=== PATIENT | male | born 1950 | race Hispanic/Latino ===

== ENCOUNTER 2019-06-15 21:37 | Inpatient (IN) | payer MEDICARE ==
[2019-06-15] MEDS ORDERED: Morphine 4 MG/ML VIAL ONE (22:13)
[2019-06-15] MEDS ORDERED: Nitroglycerin 0.4 MG TAB (25 Tab Bottle) SL PRN (22:35)
[2019-06-15] MEDS ORDERED: Morphine 2 MG/ML SYRINGE SLOW IVP PRN (22:35)
[2019-06-15] MEDS ORDERED: Calcium Carbonate 500 MG ChewTAB PO PRN (22:39)
[2019-06-15] MEDS ORDERED: Acetaminophen 325 MG TAB PO PRN (22:39)
[2019-06-15] MEDS ORDERED: Ondansetron ODT 4 MG TAB PO PRN (22:39)
[2019-06-15] MEDS ORDERED: Ondansetron PF 4 MG/2 ML Vial IVP PRN (22:39)
[2019-06-15] MEDS ORDERED: Insulin Regular 300 UNITS/3 ML VIAL SC PRN ×2 (22:42)
[2019-06-15] MEDS ORDERED: Heparin 10,000 UNITS/ 10 ML VIAL SLOW IVP SCH (22:45)
[2019-06-15] MEDS ORDERED: Heparin 25,000 units/D5W 500 ML IVPB SCH (22:45)
[2019-06-15] MEDS ORDERED: Nitroglycerin 50 MG/250 ML BOT 250 ML IVPB SCH (22:45)
[2019-06-15 23:00] LABS: Hemoglobin 15.4 g/dL (14.0-18.0); Platelet Count 161 thou/uL (130-400)
[2019-06-15 23:18] LABS: Magnesium 1.8 mg/dL (1.6-2.6); Phosphorus 2.4 mg/dL (2.3-4.7)
[2019-06-15 23:29] LABS: Troponin I 2.149 ng/mL (< 0.028)
[2019-06-16 00:44] VITALS: BMI 31.2
[2019-06-16] MEDS: Sodium Chloride 0.9% 1,000 ML IV SCH ×2 (00:48→13:26)
--- NOTE | 2019-06-16 01:40 | HP ---
The patient was seen and examined on June 15, 2019. CHIEF COMPLAINT: Chest discomfort. HISTORY OF PRESENT ILLNESS: The patient is a 68-year-old male with impaired glucose tolerance and chronic renal insufficiency, presented to the emergency room with above complaints. Over the last 1 week, the patient has on and off chest discomfort that is substernal. It is worse on exertion. The pain got worse this evening around 7 p.m. while he was mowing his yard. He had some palpitations and diaphoresis along with shortness of breath as well. He was anxious. He denies any radiation. In the emergency room at [facility], he was started on heparin drip along with nitroglycerin drip. His chest pain improved. He denies recent cardiac workup. PAST MEDICAL HISTORY: 1. Chronic renal insufficiency. 2. Impaired glucose tolerance. PAST SURGICAL HISTORY: Lithotripsy for renal calculi. ALLERGIES: NO KNOWN DRUG ALLERGIES. CURRENT HOME MEDICATIONS: Pepcid twice a day which was started [address] Houston Eldridge. SOCIAL HISTORY: The patient currently lives at home with his family. He is full code. No smoking, alcohol, or drug use. He makes his own decision with the help of his family. The patient is Macedonian-speaking only. FAMILY HISTORY: Negative for premature coronary artery disease. Father of pneumonia. REVIEW OF SYSTEMS: All other review of systems were reviewed and were found negative. PHYSICAL EXAMINATION: VITAL SIGNS: In the emergency room showed temperature 97.8, pulse rate of 72, respirations 20, blood pressure 178/86, O2 saturation 99% on room air. GENERAL: A 68-year-old male, in no apparent distress. Pain improved. HEENT: Head, atraumatic and normocephalic. Sclerae anicteric. Moist mucous membranes. No oral lesion. NECK: Supple. No JVD appreciated. No carotid bruits. LUNGS: Clear to auscultation bilaterally. No wheezing, rales, or rhonchi. HEART: S1, S2 present. Regular. No reproducible chest wall tenderness. No significant murmurs appreciated. ABDOMEN: Soft, nontender. Bowel sounds present. No rebound or guarding. No costovertebral angle tenderness. EXTREMITIES: No edema or calf tenderness. NEUROLOGIC: Grossly nonfocal. Moves all 4 extremities. PSYCHIATRIC: Alert, awake and oriented x3. SKIN: Warm and dry. LYMPH NODES: No palpable lymph nodes in the neck. Peripheral vascular radial pulses palpable bilaterally. MUSCULOSKELETAL: No joint swelling tenderness. DIAGNOSTIC TESTS: EKG by my review showed left axis deviation with sinus rhythm, first-degree AV block with T-wave inversions in lateral leads. Troponin 1.1 with a repeat troponin 2.1. BNP was 63. Recent hemoglobin A1c was 6.2. Creatinine 1.86. His recent creatinine was 1.39. Sodium 143, potassium 3.7. Chest x-ray by my review was negative for infiltrate. IMPRESSION: 1. Non-ST elevation myocardial infarction. 2. Impaired glucose tolerance. 3. Acute kidney injury on chronic kidney disease, stage 3. 4. Obesity with a BMI of 31.3. PLAN: 1. The patient will be monitored in the intensive care unit. We will continue nitroglycerin and heparin drip. We will start him on gentle hydration. We will hold LUANA inhibitor due to renal insufficiency. We will start him on low-dose beta blockers. We will continue telemetry monitoring. Morphine p.r.n. for chest pain. 2. Sublingual nitroglycerin as needed for pain. Mild insulin sliding scale. We will recheck EKG in a.m. We will repeat troponin in a.m. Cardiology has been consulted. We will keep him n.p.o. past midnight for probable cardiac catheterization. 3. The patient and the family understand the above plan of care. Job ID: [id number]
[2019-06-16 04:56] LABS: #Lymphocytes 1.9 thou/uL (1.20-3.40); #Monocytes 0.8 thou/uL (0.11-0.59); #Neutrophils 5.7 thou/uL (1.40-6.50); %Basophils 0.2 % (0.0-1.0); %Eosinophils 0.5 % (0.0-10.0); %Lymphocytes 22.8 % (21.0-51.0); %Neutrophils 67.5 % (42.0-75.0); Hemoglobin 14.8 g/dL (14.0-18.0); Mean Corpuscular HGB CONC 33.9 g/dL (32.0-36.0); Mean Corpuscular Hemoglobin 31.8 pg (27.0-31.0); Mean Platelet Volume 8.9 fL (7.4-10.4); Platelet Count 155 thou/uL (130-400); RBC Distribution Width 11.5 % (11.5-14.5); Red Blood Cell (RBC) Count 4.65 mill/uL (4.70-6.10); White Blood Cell (WBC) Count 8.5 thou/uL (4.8-10.8)
[2019-06-16 05:22] LABS: ALT (SGPT) 47 U/L (8-55); AST (SGOT) 77 U/L (5-34); Alkaline Phosphatase 82 U/L (40-110); Anion Gap 12 mmol/L (10-20); BUN (Urea Nitrogen) 15 mg/dL (8.4-25.7); Bilirubin, Total 0.4 mg/dL (0.2-1.2); Calc. Creatinine Clearance 69 mL/min (70-130); Calcium 8.7 mg/dL (7.8-10.44); Carbon Dioxide 22 mmol/L (23-31); Chloride 108 mmol/L (98-107); Cholesterol 175 mg/dl (< 200 Desired); Estimated GFR-MDRD 57; Globulin 2.7 g/dL (2.4-3.5); Glucose 158 mg/dL (80-115); HDL Cholesterol 35 mg/dL (>60 Neg Risk); LDL Cholesterol, Calculated 108 mg/dL; Potassium 3.8 mmol/L (3.5-5.1); Protein, Total 6.7 g/dL (5.8-8.1); Sodium 138 mmol/L (136-145); Triglycerides 160 mg/dL (Less than 150)
[2019-06-16 05:50] LABS: CKMB 55.4 ng/mL (0-6.6)
[2019-06-16] MEDS ORDERED: Communication Order-Pharmacy FS SCH (08:45)
[2019-06-16] MEDS ORDERED: Aspirin 325 mg Enteric Coated Tablet PO SCH (09:00)
[2019-06-16] MEDS ORDERED: Metoprolol Tartrate 25 MG TAB PO SCH ×2 (09:00→21:00)
[2019-06-16] MEDS ORDERED: Heparin 10,000 UNITS/1 ML VIAL ONE (09:07)
[2019-06-16] MEDS ORDERED: Verapamil 5 MG/2 ML VIAL ONE (09:07)
[2019-06-16] MEDS ORDERED: Nitroglycerin 100MG/250ML BOT 250 ML ONE (09:08)
[2019-06-16] MEDS ORDERED: Iopamidol 370 76% 100 ML VIAL ONE (09:38)
--- NOTE | 2019-06-16 09:47 | CON ---
DATE OF CONSULTATION: 06/16/2019 INDICATION FOR CONSULTATION: A 68-year-old gentleman, who has suffered a bfl-EC-tdlaubg elevation myocardial infarction. He started having chest pain on Friday. It was rather relatively mild apparently and then yesterday while work in the yard, he experienced more chest pain. He was seen in the emergency room. EKG showed T-wave inversions in the anterior and lateral leads with decreased R-wave progression in V1 through V3, as well as T-wave inversion in I and aVL, V5 and V6 with small Q-waves in III and aVF. He was taken to the hospital and has been on heparin drip and also been on nitroglycerin. He denies any history in the past of hypertension, hypercholesterolemia, diabetes, tobacco abuse, or early family history of heart disease. He did smoke more than 40 years ago. He only smoked for short period of time. PAST MEDICAL HISTORY: Relatively unremarkable, except for some nephrolithiasis. SOCIAL HISTORY: He is . He has four healthy children. He has no alcohol or tobacco abuse. FAMILY HISTORY: Unremarkable. ALLERGIES: NONE. MEDICATIONS: He said he was taking no prescribed medications. REVIEW OF SYSTEMS: 12-point review of systems unremarkable, except for the history of nephrolithiasis. He said he has had no nephrolithiasis in the last six years. PHYSICAL EXAMINATION: GENERAL: Reveals a well-developed, well-nourished gentleman, in no acute distress. VITAL SIGNS: heart rate 70, shows normal sinus rhythm; he is afebrile; and respiratory rate is 13. HEENT: Unremarkable. His head was normocephalic and atraumatic. Carotid pulses are present. CARDIOVASCULAR: Reveals regular rate and rhythm. Normal S1, S2. I do not hear an S3 or S4. There were no significant murmurs, heaves, thrills, bruits, or rubs. ABDOMEN: Soft and nontender. Positive bowel sounds are present. No organomegaly or masses are noted. Femoral pulses are present. EXTREMITIES: No clubbing, cyanosis, or edema. Pedal pulses are present. Radial pulses are present. NEUROLOGIC: The patient appears to be fully intact. There are no gross focal motor deficits noted. SKIN: Warm and dry. LABORATORY DATA: EKG shows ST-segment changes and T-wave inversions as noted above. His creatinine is normal at 1.26. He had an echocardiogram performed this morning and I have not seen that echocardiogram yet but was told that his ejection fraction was decreased. IMPRESSION: 1. Tug-UY-ivmfapw elevation myocardial infarction involving most likely the anterior and lateral leads. He may have certainly had three-vessel disease since he has small Q-waves in lead III and aVF. I have explained the procedure and the risks to him to include bleeding, infection, possible myocardial infarction, renal insufficiency or renal failure as well as the possibility of cerebrovascular accident or . He understands and agrees to proceed. This was performed using the manager inventory transtelephonically. Kie-VW-ukdwsxo elevation myocardial infarction. He has agreed to undergo urgent cardiac catheterization for evaluation of coronary arteries. His cholesterol level did show triglycerides of 160, HDL was 35, and LDL was 108, not significantly elevated. Troponin I was originally less than 1 in [place]. Here, his troponin I was 2.4, this morning is 15.1. Hemoglobin is 14.8, platelet count 155,000, and WBC of 8.5. His potassium is 3.8, BUN is 15, creatinine 1.26, and blood sugar was 158. He may need further evaluation for the elevation of the glucose. We will proceed with a rather urgent cardiac catheterization in this gentleman. Job ID: [id number] MTDD
[2019-06-16] MEDS ORDERED: TICAGRELOR 90 MG TABLET ONE (10:56)
[2019-06-16] MEDS ORDERED: Mag-Al 1200 mg/1200 mg/30 ML UDCUP PO PRN (11:38)
[2019-06-16] MEDS ORDERED: Acetaminophen/Codeine 30-300mg Tablet PO PRN (11:38)
[2019-06-16] MEDS ORDERED: cloNIDine 0.1 MG TAB PO PRN (11:38)
--- NOTE | 2019-06-16 12:38 | CON ---
DATE OF CONSULTATION: 06/16/2019 SERVICE: Pulmonary Medicine. INTERVAL HISTORY: The patient is a 68-year-old male with past medical history significant for coronary artery disease. He had onset of chest discomfort and presented to the emergency department. At that location, he was discovered to have an elevated troponin, which progressively got worse. As such, he is going down for cardiac catheterization. Because of elevated blood pressures, the discomfort, nitroglycerin drip was initiated and currently he is chest pain-free. He did not have any ST elevation on EKG. Otherwise, he has been hemodynamically stable overnight without significant events on telemetry. Currently, he does not report having any shortness of breath. PAST MEDICAL HISTORY: 1. Chronic kidney disease. 2. Prediabetes. 3. History of nephrolithiasis. PAST SURGICAL HISTORY: Lithotripsy. ALLERGIES: NO KNOWN DRUG ALLERGIES. MEDICATIONS: List of his inpatient medications were reviewed. No specific updates were made at this time. SOCIAL HISTORY: Negative for alcohol, tobacco, or illicit drug use. He is Urdu-speaking only, but has no exposure to chemicals, dust, asbestos, or tuberculosis. FAMILY HISTORY: Noncontributory. MEDICATIONS: List of his inpatient medications were reviewed. No specific updates were made at this time. REVIEW OF SYSTEMS: General, head, ears, eyes, nose, throat, cardiovascular, respiratory, GI, , musculoskeletal, neurologic, and skin is negative except as mentioned in HPI. PHYSICAL EXAMINATION: VITAL SIGNS: Afebrile, pulse 68, blood pressure 114/69, respirations 21, saturation 96%, currently on room air. GENERAL: The patient is awake and alert, in no apparent distress. LUNGS: Decent air entry with no prolonged expiratory phase or wheezing present. HEART: Normal rate and regular. ABDOMEN: Soft, nontender, nondistended. Bowel sounds are positive. MUSCULOSKELETAL: No cyanosis or clubbing. There is no pitting in the bilateral lower extremities. NEUROLOGIC: Grossly nonfocal. LABORATORY DATA: WBC 8.5, hemoglobin 14.8, and platelets 155,000. Basic metabolic profile is unremarkable except for creatinine of 1.26. Liver function studies are unremarkable. Troponin is up trending from 2.1 to 15.1. BNP is unremarkable. ASSESSMENT: 1. Xwo-RJ-msseljpnn myocardial infarction. 2. Coronary artery disease, status post PCI to the proximal LAD. 3. Chest pain, currently resolved. DISCUSSION AND PLAN: The patient is doing fine from respiratory standpoint. After this procedure, if Cardiology is okay with that, he can be transitioned out of the ICU to the telemetry unit. At this point, he has no further requirements for inpatient Pulmonary or Critical Care opinion, and I will sign off. Please call with additional questions or concerns through time. 70 minutes have been devoted to this patient in various activities. I personally reviewed all imaging studies and laboratory data noted within this document. For fifty percent of this time, I was interacting with the patient at the bedside or coordinating care with the care team. For the remainder of the time I was immediately available to the patient in the hospital unit. Job ID: [id number] [facility]
[2019-06-16 12:59] LABS: Troponin I 28.141 ng/mL (< 0.028)
[2019-06-16] MEDS: Famotidine 20 MG TAB PO SCH ×3 (13:25→21:39)
[2019-06-16] MEDS: Calcium Carbonate 600 MG + Vit D TAB PO SCH ×3 (13:25→18:44)
[2019-06-16] MEDS: Senokot S 8.6-50 MG TAB PO SCH ×3 (13:25→21:39)
--- NOTE | 2019-06-16 15:20 | PDOC.HOSPP ---
- Subjective Encounter Date: 06/16/19 Encounter Time: 15:19 Subjective: Pt seen for followup re: NSTEMI. Denies chest pain or shortness of breath. - Objective Vital Signs & Weight: Vital Signs (12 hours) Temp Pulse Resp BP Pulse Ox 06/16/19 13:07 97.8 F 66 18 156/70 H 98 06/16/19 11:25 98.9 F 06/16/19 08:00 96 06/16/19 07:00 98.7 F 06/16/19 04:00 98.0 F Weight Admit Weight 187 lb 13.341 oz Weight 187 lb 13.341 oz Most Recent Monitor Data Heart Rate from ECG 74 NIBP 117/79 NIBP BP-Mean 91 Respiration from ECG 14 SpO2 96 I&O: 06/15/19 06/16/19 06/17/19 06:59 06:59 06:59 Intake Total 497.0 1003.9 Output Total 725 450 Balance -228.0 553.9 Result Diagrams: 06/16/19 04:45 06/16/19 04:45 Additional Labs: Accuchecks 06/16/19 06/16/19 12:22 01:05 POC Glucose 109 139 H Labs and MARs reviewed by me EKG Reviewed by me: Yes (Tele: NSR) Hospitalist ROS - Review of Systems Cardiovascular: denies: chest pain, palpitations, orthopnea, paroxysmal noc. dyspnea, edema, light headedness Gastrointestinal: denies: nausea, vomiting, abdominal pain, diarrhea, constipation, melena, hematochezia - Medication Medications: Active Medications Generic Name Dose Route Start Last Admin Trade Name Clinton PRN Reason Stop Dose Admin Calcium/Vitamin D 1 tab 06/16/19 08:00 06/16/19 14:55 Caltrate 600 + Vit D PO 1 tab BID-WM JAIME Administration Famotidine 20 mg 06/16/19 09:00 06/16/19 14:56 Pepcid PO 20 mg BID JAIME Administration Sodium Chloride 1,000 mls @ 75 mls/hr 06/15/19 22:45 06/16/19 13:26 Normal Saline 0.9% IV Not Given .[id number] JAIME Metoprolol Succinate 25 mg 06/16/19 14:30 06/16/19 14:55 Toprol Xl PO 06/16/19 16:30 25 mg NOW JAIME Administration Senna/Docusate Sodium 1 tab 06/16/19 09:00 06/16/19 14:55 Senokot S PO 1 tab BID JAIME Administration - Exam General Appearance: awake alert General - other findings: Obese Eye: anicteric sclera ENT: moist mucosa Neck: supple Heart: RRR Respiratory: CTAB, no wheezes Gastrointestinal: soft, non-tender Neurological: no weakness Psychiatric: normal affect, normal behavior Hosp A/P (1) NSTEMI (non-ST elevated myocardial infarction) Code(s): I21.4 - NON-ST ELEVATION (NSTEMI) MYOCARDIAL INFARCTION Status: Acute (2) Dyslipidemia Code(s): E78.5 - HYPERLIPIDEMIA, UNSPECIFIED Status: Chronic (3) Chronic kidney disease, stage 3 Code(s): N18.3 - CHRONIC KIDNEY DISEASE, STAGE 3 (MODERATE) Status: Chronic - Plan s/p PCI with KECIA. Continue aspirin, Brilinta. Continue statin. Creatinine improved. Pt has beens tarted on ACEI.
[2019-06-16 18:09] LABS: Critical Call Chem Troponin I RESULT DECREASING; Troponin I 22.423 ng/mL (< 0.028)
[2019-06-16] MEDS ORDERED: Atorvastatin Calcium 40 MG TAB PO SCH (21:00)
[2019-06-16] MEDS ORDERED: Prevnar 13-Val Conj/PF 0.5 ML SYRINGE IM ONE (21:00)
[2019-06-16] MEDS: TICAGRELOR 90 MG TABLET PO SCH (21:40)
--- NOTE | 2019-06-16 22:46 | EKG ---
Test Reason : Blood Pressure : / mmHG Vent. Rate : 057 BPM Atrial Rate : 057 BPM P-R Int : 236 ms QRS Dur : 074 ms QT Int : 478 ms P-R-T Axes : 048 001 101 degrees QTc Int : 465 ms Sinus bradycardia with 1st degree A-V block Inferior infarct (cited on or before 15-JUN-2019) Anterior infarct (cited on or before 15-JUN-2019) T wave abnormality, consider lateral ischemia Abnormal ECG When compared with ECG of 15-JUN-2019 22:19, (Unconfirmed) Serial changes of Anterior infarct Present Confirmed by Yamileth HUSAIN ([id number]) on 06/16/2019 10:45:52 PM Referred By: GINO Confirmed By:Yamileth HUSAIN
--- NOTE | 2019-06-16 22:48 | EKG ---
Test Reason : POST STENT Blood Pressure : / mmHG Vent. Rate : 055 BPM Atrial Rate : 055 BPM P-R Int : 242 ms QRS Dur : 072 ms QT Int : 474 ms P-R-T Axes : 041 005 098 degrees QTc Int : 453 ms Sinus bradycardia with 1st degree A-V block Inferior infarct (cited on or before 15-JUN-2019) T wave abnormality, consider anterior ischemia Abnormal ECG When compared with ECG of 16-JUN-2019 06:56, (Unconfirmed) Criteria for Anterior infarct are no longer Present Nonspecific T wave abnormality has replaced inverted T waves in Lateral leads Confirmed by Yamileth HUSAIN ([id number]) on 06/16/2019 10:47:39 PM Referred By: RODRIGUE Confirmed By:Yamileth HUSAIN
[2019-06-17 04:23] LABS: #Eosinphils 0.1 thou/uL (0.0-0.7); #Monocytes 0.8 thou/uL (0.11-0.59); #Neutrophils 3.9 thou/uL (1.40-6.50); %Basophils 0.2 % (0.0-1.0); %Lymphocytes 28.8 % (21.0-51.0); %Monocytes 11.9 % (0.0-10.0); %Neutrophils 58.1 % (42.0-75.0); Hemoglobin 13.5 g/dL (14.0-18.0); Mean Corpuscular HGB CONC 35.1 g/dL (32.0-36.0); Mean Corpuscular Hemoglobin 32.9 pg (27.0-31.0); Mean Corpuscular Volume 93.7 fL (78.0-98.0); Mean Platelet Volume 9.1 fL (7.4-10.4); Platelet Count 128 thou/uL (130-400); RBC Distribution Width 11.6 % (11.5-14.5); Red Blood Cell (RBC) Count 4.09 mill/uL (4.70-6.10); White Blood Cell (WBC) Count 6.8 thou/uL (4.8-10.8)
[2019-06-17] MEDS: Sodium Chloride 0.9% 1,000 ML IV SCH ×2 (04:32→16:52)
[2019-06-17 04:57] LABS: ALT (SGPT) 36 U/L (8-55); AST (SGOT) 53 U/L (5-34); Albumin 3.4 g/dL (3.4-4.8); Alkaline Phosphatase 69 U/L (40-110); Anion Gap 15 mmol/L (10-20); BUN (Urea Nitrogen) 13 mg/dL (8.4-25.7); Bilirubin, Total 0.7 mg/dL (0.2-1.2); Calc. Creatinine Clearance 73 mL/min (70-130); Calcium 8.2 mg/dL (7.8-10.44); Carbon Dioxide 18 mmol/L (23-31); Chloride 109 mmol/L (98-107); Estimated GFR-MDRD 62; Globulin 2.4 g/dL (2.4-3.5); Glucose 112 mg/dL (80-115); Magnesium 1.8 mg/dL (1.6-2.6); Potassium 3.9 mmol/L (3.5-5.1); Protein, Total 5.8 g/dL (5.8-8.1); Sodium 138 mmol/L (136-145)
[2019-06-17 05:03] LABS: Critical Call Chem Troponin I RESULT DECREASING
[2019-06-17 05:22] LABS: CKMB 9.8 ng/mL (0-6.6); Critical Call CKMB RESULT DECREASING
[2019-06-17] MEDS: Calcium Carbonate 600 MG + Vit D TAB PO SCH (08:42)
[2019-06-17] MEDS: Famotidine 20 MG TAB PO SCH (08:43)
[2019-06-17] MEDS: Senokot S 8.6-50 MG TAB PO SCH (08:43)
[2019-06-17] MEDS: TICAGRELOR 90 MG TABLET PO SCH (08:44)
[2019-06-17] MEDS ORDERED: Aspirin 81 mg Enteric Coated Tablet PO SCH (09:00)
[2019-06-17] MEDS ORDERED: Lisinopril 5 MG TAB PO SCH (09:00)
--- NOTE | 2019-06-17 13:26 | PDOC.HOSPP ---
- Subjective Encounter Date: 06/17/19 Subjective: Ambulating in the room No new complains - Objective Vital Signs & Weight: Vital Signs (12 hours) Temp Pulse Resp BP Pulse Ox 06/17/19 11:32 97.9 F 62 14 135/63 97 06/17/19 07:20 97.9 F 66 16 119/54 L 96 06/17/19 04:00 97.4 F L 64 18 115/57 L 96 Weight Admit Weight 187 lb 13.341 oz Weight 190 lb 2 oz Most Recent Monitor Data Heart Rate from ECG 74 NIBP 117/79 NIBP BP-Mean 91 Respiration from ECG 14 SpO2 96 I&O: 06/16/19 06/17/19 06/18/19 06:59 06:59 06:59 Intake Total 497.0 1998.9 Output Total 725 1000 Balance -228.0 998.9 Result Diagrams: 06/17/19 04:05 06/17/19 04:05 Additional Labs: Accuchecks 06/17/19 06/17/19 06/16/19 10:48 05:22 21:39 POC Glucose 137 H 103 138 H 06/16/19 15:47 POC Glucose 163 H Hospitalist ROS - Medication Medications: Active Medications Generic Name Dose Route Start Last Admin Trade Name Freq PRN Reason Stop Dose Admin Aspirin 81 mg 06/17/19 09:00 06/17/19 08:42 Ecotrin PO 81 mg DAILY JAIME Administration Atorvastatin Calcium 40 mg 06/16/19 21:00 06/16/19 21:39 Lipitor PO 40 mg HS JAIME Administration Calcium/Vitamin D 1 tab 06/16/19 08:00 06/17/19 08:42 Caltrate 600 + Vit D PO 1 tab BID-WM JAIME Administration Famotidine 20 mg 06/16/19 09:00 06/17/19 08:43 Pepcid PO 20 mg BID JAIME Administration Sodium Chloride 1,000 mls @ 75 mls/hr 06/15/19 22:45 06/17/19 04:32 Normal Saline 0.9% IV 1,000 mls .[id number] JAIME Administration Lisinopril 5 mg 06/17/19 09:00 06/17/19 08:43 Zestril PO 5 mg DAILY JAIME Administration Metoprolol Succinate 25 mg 06/17/19 09:00 06/17/19 08:43 Toprol Xl PO 25 mg DAILY JAIME Administration Senna/Docusate Sodium 1 tab 06/16/19 09:00 06/17/19 08:43 Senokot S PO 1 tab BID JAIME Administration Ticagrelor 90 mg 06/16/19 21:00 06/17/19 08:44 Brilinta PO 90 mg BID JAIME Administration - Exam General Appearance: awake alert ENT: normocephalic atraumatic Neck: supple, no JVD Heart: RRR, no murmur, no gallops, no rubs Respiratory: CTAB, no wheezes, no rales, no ronchi Gastrointestinal: soft, non-tender, non-distended, normal bowel sounds Hosp A/P (1) NSTEMI (non-ST elevated myocardial infarction) Code(s): I21.4 - NON-ST ELEVATION (NSTEMI) MYOCARDIAL INFARCTION Status: Acute (2) Chronic kidney disease, stage 3 Code(s): N18.3 - CHRONIC KIDNEY DISEASE, STAGE 3 (MODERATE) Status: Chronic (3) Dyslipidemia Code(s): E78.5 - HYPERLIPIDEMIA, UNSPECIFIED Status: Chronic (4) Chest pain Code(s): R07.9 - CHEST PAIN, UNSPECIFIED Status: Acute - Plan NSTEMI S/P Cardiac cath with stent placement On ASA and ticagrerol in addition to lisinopril and metoprolol.
--- NOTE | 2019-06-17 15:20 | PDOC.CPN ---
Addendum entered and electronically signed by Keith Frias MD 06/17/19 17:36: Correction: the pt. does not have CKD. Original Note: - Subjective Date: 06/17/19 Time: 08:30 Interval history: The pt seen and examined. No overnight events. No cardiac complaints. - Objective Allergies/Adverse Reactions: Allergies Allergy/AdvReac Type Severity Reaction Status Date / Time No Known Allergies Allergy Verified 10/27/14 17:45 Visit Medications: Current Medications Acetaminophen (Tylenol) 650 mg PO Q4H PRN PRN Reason: Headache/Fever/Mild Pain (1-3) Acetaminophen/Codeine Phosphate (Tylenol #3) 1 tab PO Q4H PRN PRN Reason: Mild Pain (1-3) Al Hydroxide/Mg Hydroxide (Maalox) 30 ml PO Q3H PRN PRN Reason: Indigestion Aspirin (Ecotrin) 81 mg PO DAILY [facility] Last Admin: 06/17/19 08:42 Dose: 81 mg Atorvastatin Calcium (Lipitor) 40 mg PO HS [facility] Last Admin: 06/16/19 21:39 Dose: 40 mg Calcium Carbonate (Tums) 1,000 mg PO Q4H PRN PRN Reason: Heartburn or Indigestion Calcium/Vitamin D (Caltrate 600 + Vit D) 1 tab PO BID-WM [facility] Last Admin: 06/17/19 08:42 Dose: 1 tab Clonidine (Catapres) 0.1 mg PO Q2H PRN PRN Reason: SBP GREATER THAN 160 Famotidine (Pepcid) 20 mg PO BID [facility] Last Admin: 06/17/19 08:43 Dose: 20 mg Sodium Chloride (Normal Saline 0.9%) 1,000 mls @ 75 mls/hr IV .[id number] [facility] Last Admin: 06/17/19 04:32 Dose: 1,000 mls Insulin Human Regular (Humulin R) 0 units SC .MILD SLIDING SCALE PRN PRN Reason: Mild Correctional Scale Insulin Human Regular (Humulin R) 0 units SC .BEDTIME SLIDING SC PRN PRN Reason: Bedtime Correctional Scale Lisinopril (Zestril) 5 mg PO DAILY [facility] Last Admin: 06/17/19 08:43 Dose: 5 mg Metoprolol Succinate (Toprol Xl) 25 mg PO DAILY [facility] Last Admin: 06/17/19 08:43 Dose: 25 mg Nitroglycerin (Nitrostat) 0.4 mg SL Q5MIN PRN PRN Reason: Chest Pain Ondansetron HCl (Zofran Odt) 4 mg PO Q6H PRN PRN Reason: Nausea/Vomiting Ondansetron HCl (Zofran) 4 mg IVP Q6H PRN PRN Reason: Nausea/Vomiting Senna/Docusate Sodium (Senokot S) 1 tab PO BID [facility] Last Admin: 06/17/19 08:43 Dose: 1 tab Sodium Chloride (Flush - Normal Saline) 10 ml IVF PRN PRN PRN Reason: Saline Flush Ticagrelor (Brilinta) 90 mg PO BID [facility] Last Admin: 06/17/19 08:44 Dose: 90 mg Vital Signs & Weight: Vital Signs Temp Pulse Pulse Pulse Resp BP BP 06/17/19 14:23 62 62 143/69 H 151/72 H 06/17/19 11:32 97.9 F 62 14 06/17/19 07:20 97.9 F 66 16 06/17/19 04:00 97.4 F L 64 18 BP Pulse Ox 06/17/19 14:23 06/17/19 11:32 135/63 97 06/17/19 07:20 119/54 L 96 06/17/19 04:00 115/57 L 96 Admit Weight 187 lb 13.341 oz Weight 190 lb 2 oz - Physical Exam General: alert & oriented x3 HEENT: mucus membranes moist Neck: supple neck Cardiac: regular rate and rhythm, S1/S2 Lungs: clear to auscultation Neuro: cranial nerve 2-12 intact - Labs Result Diagrams: 06/17/19 04:05 06/17/19 04:05 Troponin/CKMB CK-MB (CK-2) 9.8 ng/mL (0-6.6) H* 06/17/19 04:05 Troponin I 12.006 ng/mL (< 0.028) H* 06/17/19 04:05 - Telemetry Sinus rhythms and dysrhythmias: sinus rhythm - Assessment/Plan Assessment/Plan: 1. CAD with s/p LHC with KECIA in mid LAD, 75% stenosis in 1st diag and in OM1; and EF 50-55% - On Brilinta, ASA, Toprol, Lisinopril; OK to change to Plavix after he finishes Brilinta sample 2. DM type 2 3. HLD MAR reviewed * S/p LHC on 06/16/2019 with KECIA in mid LAD;75% stenosis in 1st diag and in OM1 ; and EF 50-55% * Echo on 06/16/2019 with EF 45-50%, hypokinetic septum and apex, grade I dd, mod LAE, trace MR and TR, mild AR * Plavix function assay was 8. This indicates that he will likely respond to plavix. * From Cardiac standpoint, the pt is stable to d/c home. The pt will f/u with Dr Frias' office in 2 wks. The pt will be given 3 wks sample of Brilinta. Then, change to Plavix 75mg qd. Pt. seen and eval. by me. He denies complaints. I agree with the a/P by the [employer]. We have discussed the pt. in detail. Chest clear. RRR. He may need further intervention in the future to the Diag.1 and to the OM. F/U in the office. tamie
[2019-06-17 15:25] VITALS: BP 151/70; TEMP 98.2
--- NOTE | 2019-06-17 21:00 | EKG ---
Test Reason : Blood Pressure : / mmHG Vent. Rate : 057 BPM Atrial Rate : 057 BPM P-R Int : 232 ms QRS Dur : 074 ms QT Int : 490 ms P-R-T Axes : 044 009 093 degrees QTc Int : 476 ms Sinus bradycardia with 1st degree A-V block Low voltage QRS Inferior infarct (cited on or before 15-JUN-2019) Marked T wave abnormality, consider anterolateral ischemia Abnormal ECG When compared with ECG of 16-JUN-2019 11:57, Inverted T waves have replaced nonspecific T wave abnormality in Lateral leads Confirmed by Yamileht HUSAIN ([id number]) on 06/17/2019 9:00:06 PM Referred By: RODRIGUE Confirmed By:Yamileth HUSAIN
--- NOTE | 2019-06-18 13:10 | DIS ---
DATE OF ADMISSION: 06/15/2019 DATE OF DISCHARGE: 06/17/2019 DISCHARGE DIAGNOSES: 1. Coronary artery disease with [id number]-[id number] myocardial infarction. 2. Diabetes mellitus type 2. 3. Hyperlipidemia. 4. Chronic kidney disease stage 3. DISCHARGE MEDICATIONS: 1. Aspirin 81 mg orally daily. 2. Atorvastatin 40 mg orally nightly. 3. Lisinopril 5 mg orally daily. 4. Metoprolol succinate 25 mg orally daily. 5. Nitroglycerin 5 mg sublingual as needed for chest pain. 6. Ticagrelor or Brilinta 90 mg orally daily for 3 weeks. The patient will follow up with Cardiology and the medication will be switched to Plavix after that. HISTORY OF PRESENT ILLNESS AND BRIEF HOSPITAL COURSE: The patient is a 68-year-old male with a past medical history of chronic renal disease and diabetes mellitus type 2, who presented to the hospital with complaints of chest pain. His troponin was found to be elevated at 22, and EKG showed nonspecific findings. The patient underwent emergent cardiac catheterization, where a drug-eluting stent was placed in mid LAD. Other findings were 75% stenosis in the 1st diagonal and in OM1. EF was 50% to 55%. The patient was subsequently started on medical management with aspirin, Brilinta, metoprolol, and lisinopril. He is to follow up with Cardiology in 2 weeks. At that time, the Brilinta will be switched to Plavix. Job ID: [id number]
--- NOTE | 2019-06-21 07:12 | PQF ---
ROWAN DOMINGO MOEZ [id number] [facility] 257 [id number] CLINICAL DOCUMENTATION CLARIFICATION FORM: POST DISCHARGE Addendum to original discharge summary date: ____ Late entry note date: __ DATE: 06/21/2019 ATTN: Forrest Kilgore Please exercise your independent, professional judgment in responding to the clarification form. Clinical indicators are provided on the bottom of this form for your review Please check appropriate box(s) to clarify if the following diagnosis has been ruled in or ruled out: Acute Kidney Injury [ > ] Ruled in diagnosis [ ] Continue to treat [ ] Resolved [ ] Ruled out diagnosis [ ] Cannot rule out diagnosis [ ] Other diagnosis [ ] Unable to determine For continuity of documentation, please document condition throughout progress notes and discharge summary. Thank You. CLINICAL INDICATORS - SIGNS / SYMPTOMS / LABS Laboratory 06/15 Creatinine 1.26, BUN 15, GFR 57 Laboratory 06/16 Creatinine 1.18, BUN 13, GFR 62 H&P p2 06/14 Dr Weller Acute kidney injury on chronic kidney disease, stage 3 RISK FACTORS H&P p1 06/14 68-year-old male H&P p1 06/14 Hx of renal calculi H&P p2 06/14 Obesity with BMI 31.3 H&P p2 06/14 CKD 3 Discharge summary p1 06/16 DM type 2 Discharge summary 06/16 CAD Fire Official 06/14 Isovue Contrast used Consult p1 06/15 Former Smoker TREATMENTS MAR 06/15 IVF NS 1L Laboratory monitoring-Collected 06/15 (This form is maintained as a part of the permanent medical record) 2014 [employer]. All Rights Reserved [email or web address]
== END 2019-06-17 17:25 | disposition home or self-care (01) | DRG 247 ==
LOC: ERS 21:37 → CCU 22:38 → 2NO 06-16 13:26
PROVIDERS: ADMIT Internal Medicine; ATTEND Internal Medicine
PROC: 027034Z Dilation of Coronary Artery, One Artery with Drug-eluting Intraluminal Device, Percutaneous Approach (ICD-10-PCS; principal; 2019-06-16)
PROC: 4A023N7 Measurement of Cardiac Sampling and Pressure, Left Heart, Percutaneous Approach (ICD-10-PCS; 2019-06-16)
PROC: B2111ZZ Fluoroscopy of Multiple Coronary Arteries using Low Osmolar Contrast (ICD-10-PCS; 2019-06-16)
DX: I21.4 Non-ST elevation (NSTEMI) myocardial infarction (principal); N17.9 Acute kidney failure, unspecified; I25.10 Atherosclerotic heart disease of native coronary artery without angina pectoris; E11.22 Type 2 diabetes mellitus with diabetic chronic kidney disease; N18.3 Chronic kidney disease, stage 3 (moderate); E78.5 Hyperlipidemia, unspecified; E66.9 Obesity, unspecified; I08.3 Combined rheumatic disorders of mitral, aortic and tricuspid valves; Z87.442 Personal history of urinary calculi; Z68.31 Body mass index [BMI] 31.0-31.9, adult; Z87.891 Personal history of nicotine dependence; Z79.899 Other long term (current) drug therapy
CPT/HCPCS: 36415; 36416; 80053; 80061; 82553; 83735; 83880; 84100; 84484; 85025; 85347; 85576; 85730; 92928; 93005; 93010; 93306; 93458; 93798; 94760; 96365; 96366; 96368; 96375; C1769; C1874; C1887; C9600; J1644; J2270; Q9967